=== PATIENT | female | born 1980 | race Caucasian/White ===

== ENCOUNTER → 2023-01-28 10:16 | Outpatient (CLI) | payer OTHER, SELFPAY ==
--- NOTE | ~2023-01-28 | MR_ITS ---
MRI of the lumbar spine Clinical History: Lumbar radicular pain Technique: Axial T2-weighted images, and sagittal T1-weighted, T2-weighted, and T2 fat-sat images wer e acquired. Findings: There is no fracture or subluxation of lumbar spine. Vertebral bodies maintain normal heigh t and alignment. No suspicious bone marrow signal abnormality seen. At L1-L2, L2-L3, L3-L4, there is no disc bulge or herniation. There are mild to moderate facet joint degenerative changes at these levels. No spinal canal stenosis or neural foraminal narrowing at these levels. At L4-L5, there is moderate to advanced degenerative disc narrowing with mild disc bulge and moderate to advanced facet arthropathy. No central canal stenosis. There is mild bilateral neural foraminal n arrowing. At L5-S1, there is mild disc bulge with mild facet arthropathy. No spinal canal stenosis. There is mo derate bilateral neural foraminal narrowing. Paravertebral soft tissues are unremarkable. Impression: Degenerative disc change and bilateral neural foraminal narrowing at L4-L5 and L5-S1, as detailed abo ve. Reviewed, dictated and finalized at [facility]. Impression: Degenerative disc change and bilateral neural foraminal narrowing at L4-L5 and L5-S1, as detailed above.
== END ==
PROVIDERS: Visit Provider Nurse Practitioner Family
DX: M47.817 Spondylosis without myelopathy or radiculopathy, lumbosacral region (principal); M48.07 Spinal stenosis, lumbosacral region
CPT/HCPCS: 72148

== ENCOUNTER 2024-05-15 12:38 | Outpatient (CLI) | payer OTHER, SELFPAY ==
--- NOTE | ~2024-05-15 | MR_ITS ---
EXAMINATION: MR cervical spine wo con DATE: 05/15/2024 13:17 INDICATION: Neck and back pain. TECHNIQUE: Magnetic resonance imaging (MRI) of the cervical spine was performed without intravenous c ontrast. COMPARISON: None FINDINGS: There is 4 degrees dextrocurvature of cervical spine. There is mild kyphosis of cervical sp ine. Vertebral body heights are normal. There is mildly decreased disc height at C4-C5, moderately de creased disc height at C5-C6, and mildly decreased disc height at C6-C7. The spinal cord signal inten sity is normal. The following disc levels are specifically discussed: C2-C3: The disc does not extend beyond the endplate margin. There is no uncovertebral joint osteoarth ritis. There is mild right and moderate left facet joint osteoarthritis. There is no neural foraminal stenosis. There is no central canal stenosis. C3-C4: The disc does not extend beyond the endplate margin. There is no uncovertebral joint osteoarth ritis. There is severe right and moderate left facet joint osteoarthritis. There is no neural foramin al stenosis. There is no central canal stenosis. C4-C5: The disc is bulging. There is moderate bilateral uncovertebral joint osteoarthritis. There is mild right and moderate left facet joint osteoarthritis. There is mild bilateral neural foraminal don nosis. There is mild central canal stenosis. C5-C6: The disc is bulging. There is severe right and mild left uncovertebral joint osteoarthritis. T here is mild bilateral facet joint osteoarthritis. There is moderate neural foraminal stenosis. There is mild central canal stenosis. C6-C7: There is a central extrusion. There is mild bilateral uncovertebral joint osteoarthritis. Ther e is moderate left facet joint osteoarthritis. There is mild left neural foraminal stenosis. There is mild central canal stenosis. C7-T1: There is a central protrusion. There is no uncovertebral joint osteoarthritis. There is severe right and moderate left facet joint osteoarthritis. There is no neural foraminal stenosis. There is mild central canal stenosis. IMPRESSION: 1. Moderate cervical spondylosis. Reviewed, dictated and finalized at location A. [facility]
--- NOTE | ~2024-05-15 | MR_ITS ---
EXAMINATION: MR lumbar spine wo con DATE: 05/15/2024 13:21 INDICATION: Back pain. Unsteady gait. TECHNIQUE: Magnetic resonance imaging (MRI) of the lumbar spine was performed without intravenous con trast. Sequences included sagittal T2-weighted FSE, sagittal T2-weighted FS FSE, sagittal T1-weighted FSE, and axial T2-weighted FSE. COMPARISON: None FINDINGS: 4 mm retrolisthesis L5 on S1. Minimal likely physiologic anterior wedging at L1. Remaining vertebral body heights are normal. Moderate to severe right-sided predominant disc height loss with fibrofatty and fibrovascular degenerative endplate changes at L4-L5. Mild disc height loss at L4-L5 with additio nal mild fibrovascular degenerative endplate changes. There are annular fissures at both these disc l evels. T1 hyperintense L5 hemangioma. Marrow signal is otherwise normal. The conus medullaris termina autumn at L1-L2. There is normal signal in the caudal spinal cord. Paravertebral soft tissues are unrema rkable. The following disc levels are specifically discussed: T12-L1: The disc does not extend beyond the endplate margin. There is mild bilateral facet joint oste oarthritis. There is no neural foraminal stenosis. There is no central canal stenosis. L1-L2: Disc is minimally bulging. There is mild bilateral facet joint osteoarthritis. There is no mady ral foraminal stenosis. There is no central canal stenosis. L2-L3: The disc does not extend beyond the endplate margin. There is moderate bilateral facet joint o steoarthritis. There is no neural foraminal stenosis. There is no central canal stenosis. L3-L4: The disc does not extend beyond the endplate margin. There is moderate bilateral facet joint o steoarthritis. There is mild bilateral neural foraminal stenosis. There is no central canal stenosis. L4-L5: Disc is bulging with annular fissure. There is mild to moderate right and moderate to severe l eft facet joint osteoarthritis. There is moderate bilateral neural foraminal stenosis. There is mild central canal stenosis with mild narrowing of the left and right lateral recesses. L5-S1: Annular fissure and broad-based disc extrusion extending from foraminal zone to foraminal zone with disc material extending up to 3 mm caudal to the level of the superior endplate of S1. There is moderate bilateral facet joint osteoarthritis. There is moderate bilateral neural foraminal stenosis . There is mild central canal stenosis with mild narrowing of the left and right lateral recesses.. IMPRESSION: 1. No significant interval change in lumbar spondylosis, moderate to severe at L4-L5, otherwise mild. Reviewed, dictated and finalized at location B. ST[facility]FF[facility]
== END 2024-05-15 12:39 | disposition home or self-care (01) ==
LOC: MICIMG 12:40
DX: M51.16 Intervertebral disc disorders with radiculopathy, lumbar region (principal); M47.892 Other spondylosis, cervical region
CPT/HCPCS: 72141; 72148

== ENCOUNTER 2025-06-09 10:32 | Outpatient (CLI) | payer OTHER, SELFPAY ==
--- NOTE | ~2025-06-09 | MR_ITS ---
EXAMINATION: MR lumbar spine wo con DATE: 06/09/2025 11:07 INDICATION: Anesthesia and paresthesia of skin. TECHNIQUE: Magnetic resonance imaging (MRI) of the lumbar spine was performed without intravenous contrast. COMPARISON: Lumbar spine MRI 05/15/2024 FINDINGS: There is 3 mm retrolisthesis of L5 on S1. Vertebral body heights are normal. There is moderately decreased disc height at L4-L5 and mildly decreased disc height at L5-S1. The distal spinal cord signal intensity is normal. The conus medullaris is at L1-L2. The following disc levels are specifically discussed: L1-L2: The disc does not extend beyond the endplate margin. There is mild bilateral facet joint osteoarthritis. There is no neural foraminal stenosis. There is no central canal stenosis. L2-L3: The disc does not extend beyond the endplate margin. There is mild bilateral facet joint osteoarthritis. There is no neural foraminal stenosis. There is no central canal stenosis. L3-L4: The disc does not extend beyond the endplate margin. There is moderate bilateral facet joint osteoarthritis. There is no neural foraminal stenosis. There is no central canal stenosis. L4-L5: The disc is bulging and has an annular fissure. There is severe bilateral facet joint osteoarthritis. There is mild bilateral neural foraminal stenosis. There is mild central canal stenosis. L5-S1: The disc is bulging and has an annular fissure. There is moderate bilateral facet joint osteoarthritis. There is mild bilateral neural foraminal stenosis. There is mild central canal stenosis. IMPRESSION: 1. Moderate lumbar spondylosis, stable from 05/15/2024. Reviewed, dictated and finalized at location E. [facility]
== END 2025-06-09 10:33 | disposition home or self-care (01) ==
PROVIDERS: Visit Provider Physician Assistant
DX: M43.06 Spondylolysis, lumbar region (principal); M51.16 Intervertebral disc disorders with radiculopathy, lumbar region; R20.0 Anesthesia of skin; R20.2 Paresthesia of skin; M47.22 Other spondylosis with radiculopathy, cervical region
CPT/HCPCS: 72148